=== PATIENT | male | born 1940 | race Caucasian/White ===

== ENCOUNTER 2017-01-04 04:25 | Inpatient (IN) | payer MEDICARE ==
[2017-01-03 14:25] LABS: HEMOGLOBIN 15.7 g/dL (13.7-18.0)
[2017-01-03 14:37] LABS: ASPARTATE AMINO TRANSFERASE 24 U/L (15-37); BLOOD UREA NITROGEN 18 mg/dL (7-18)
[~2017-01-04] VITALS: Ht 185.4 cm; Wt 129.3 kg
[~2017-01-04 04:25] MED LIST: ACET325T14 PO; APIX5TAB PO; ASPI-650 PO; ATOR80TA75 PO; CIPR500T87 PO; FURO-93 PO; FURO40TA6 PO; HYDR12.53 PO; LANTANOPROST EACHEYE; METO-93 PO; METO25TA35 PO; METR500T4 PO; RIVA20TA PO; SPIR25TA3 PO; TIMO5DRO5 EACHEYE; TRAV5DRO EACHEYE
[2017-01-04 04:41] VITALS: BP_SYST 132; BP_SYST 145; BP_DIAS 71; BP_DIAS 87
[2017-01-04] MEDS ORDERED: DO NOT GIVE XX SCH (05:00)
[2017-01-04] MEDS ORDERED: DO NOT GIVE MC SCH (05:00)
[2017-01-04] MEDS ORDERED: CHLORHEXIDINE MOUTHWASH 15 ML UDC MM SCH (05:00)
[2017-01-04] MEDS ORDERED: ALBUMIN HUMAN 5% 500 ML IV ONE (05:00)
[2017-01-04] MEDS ORDERED: INSULIN ASPART 100 UNITS/ML, PEN SQ-INSULIN SCH (06:00)
[2017-01-04] MEDS ORDERED: MIDAZOLAM 10MG/2 ML ONE (06:39)
[2017-01-04] MEDS ORDERED: FENTANYL PF 1000 MCG/20ML ONE (06:39)
[2017-01-04] MEDS ORDERED: PROPOFOL 10 MG/ML, 20ML ONE (07:15)
[2017-01-04] MEDS ORDERED: ROCURONIUM 10 MG/ML ONE (07:15)
[2017-01-04] MEDS ORDERED: MANNITOL PMX 20% 500 ML IVPB PRN (07:30)
[2017-01-04] MEDS ORDERED: REGULAR INSULIN 62.5 UNITS in SODIUM CHLORIDE 0.9% 249.375 ML IV PRN (07:30)
[2017-01-04] MEDS ORDERED: VANCOMYCIN 1,800 MG in SODIUM CHLORIDE 0.9% 250 ML IV PRN (07:30)
[2017-01-04] MEDS ORDERED: CEFUROXIME 1.5 GM in SODIUM CHLORIDE 0.9% 50 ML IVPB PRN (07:30)
[2017-01-04] MEDS ORDERED: PHENYLEPHRINE 10 MG in SODIUM CHLORIDE 0.9% 249 ML IV PRN ×2 (07:30→11:02)
[2017-01-04] MEDS ORDERED: POTASSIUM CHLORIDE 80 MEQ, SODIUM BICARBONATE 8.4% 10 MEQ, MAGNESIUM SULFATE 0.5 GM, LI... IV PRN (07:30)
[2017-01-04] MEDS ORDERED: DEXMEDETOMIDINE 200 MCG in SODIUM CHLORIDE 0.9% 48 ML IV SCH (07:30)
[2017-01-04] MEDS ORDERED: EPINEPHRINE 2 MG in SODIUM CHLORIDE 0.9% 248 ML IV SCH (07:30)
[2017-01-04] MEDS: SODIUM CHLORIDE FLUSH 10ML SYR IVF SCH ×3 (09:00→21:49)
[2017-01-04] MEDS ORDERED: MUPIROCIN OINT 2%, 22GM TP SCH (09:00)
[2017-01-04] MEDS ORDERED: CLEVIDIPINE 50 ML IV PRN (11:02)
[2017-01-04] MEDS ORDERED: NITROGLYCERIN/D5W PMX 250 ML IV PRN (11:02)
[2017-01-04] MEDS ORDERED: SODIUM CHLORIDE 0.9% 1,000 ML IV PRN (11:02)
[2017-01-04] MEDS ORDERED: DOBUTAMINE 250 MG in SODIUM CHLORIDE 0.9% 230 ML IV PRN (11:02)
[2017-01-04] MEDS ORDERED: DEXTROSE 4 GM TAB.CHEW PO PRN (11:30)
[2017-01-04] MEDS ORDERED: MEPERIDINE/PF 50 MG/ML IVPush PRN (11:30)
[2017-01-04] MEDS ORDERED: DEXTROSE 50%, 50ML SYRINGE IVPush PRN (11:30)
[2017-01-04] MEDS ORDERED: PROCHLORPERAZINE 5 MG/ML, 2ML IVPush PRN (11:30)
[2017-01-04] MEDS: KSCALE TO 4.5 IV SCH ×2 (11:30→17:30)
[2017-01-04] MEDS ORDERED: MIDAZOLAM 1 MG/ML, 5ML IVPush PRN (11:30)
[2017-01-04] MEDS ORDERED: BISACODYL 5 MG EC TABLET PO PRN (11:30)
[2017-01-04] MEDS ORDERED: GLUCAGON 1 MG IM PRN (11:30)
[2017-01-04] MEDS ORDERED: ACETAMINOPHEN 650 MG SUPP PR PRN (11:30)
[2017-01-04] MEDS: REGULAR INSULIN 62.5 UNITS in SODIUM CHLORIDE 0.9% 249.375 ML IV PRN ×2 (11:30→19:52)
[2017-01-04] MEDS: EPINEPHRINE 2 MG in SODIUM CHLORIDE 0.9% 248 ML IV PRN ×4 (11:30→23:58)
[2017-01-04] MEDS ORDERED: CALCIUM CHLORIDE 10%, 10ML SYR ONE (11:31)
[2017-01-04] MEDS ORDERED: AMINOCAPROIC ACID 250 MG/ML, 20ML ONE ×2 (11:31→11:35)
[2017-01-04] MEDS ORDERED: PROTAMINE SULFATE 10 MG/ML, 25ML ONE ×2 (11:31→11:35)
[2017-01-04] MEDS ORDERED: SODIUM BICARB 8.4%, 50ML SYRINGE ONE ×2 (11:31→11:37)
[2017-01-04] MEDS ORDERED: ALBUMIN HUMAN 25% 50 ML ONE (11:31)
[2017-01-04] MEDS ORDERED: HEPARIN 1,000 UNITS/ML, 30ML ONE ×5 (11:32→11:34)
[2017-01-04] MEDS ORDERED: LIDOCAINE 2% 100MG/5ML SYRINGE ONE (11:32)
[2017-01-04] MEDS ORDERED: SODIUM BICARBONATE 1 MEQ/ML, 50ML VIAL ONE (11:32)
[2017-01-04] MEDS ORDERED: methylPREDNISolone SOD SUCC 125 MG/2 ML ONE (11:33)
[2017-01-04] MEDS ORDERED: MILRINONE 1 MG/ML, 10ML IV ONE (11:33)
[2017-01-04 11:50] LABS: ABG COLLECTION SITE ARTERIAL LINE
[2017-01-04 12:00] LABS: HEMOGLOBIN 11.9 g/dL (13.7-18.0)
[2017-01-04] MEDS: SODIUM BICARB 8.4%, 50ML SYRINGE IV PRN ×4 (12:15→16:06)
[2017-01-04] MEDS: MAGNESIUM SULFATE 1 GM in SODIUM CHLORIDE 0.9% 50 ML IVPB SCH (12:17)
[2017-01-04] MEDS ORDERED: MORPHINE SULFATE 4 MG/ML, 1ML ONE (12:51)
[2017-01-04] MEDS: morphine SULFATE 10 MG/ML, 1ML IVPush PRN ×3 (13:00→13:53)
[2017-01-04] MEDS ORDERED: POTASSIUM CHLORIDE PMX 100 ML IV ONE ×2 (13:00→18:30)
[2017-01-04] MEDS: DEXMEDETOMIDINE 200 MCG in SODIUM CHLORIDE 0.9% 48 ML IV PRN ×3 (13:18→17:10)
[2017-01-04 17:12] LABS: HEMOGLOBIN 12.8 g/dL (13.7-18.0)
[2017-01-04] MEDS: CEFUROXIME 1.5 GM in SODIUM CHLORIDE 0.9% 50 ML IVPB SCH (18:11)
[2017-01-04] MEDS: VANCOMYCIN 1,700 MG in SODIUM CHLORIDE 0.9% 250 ML IVPB SCH (19:52)
[2017-01-04] MEDS: LACTATED RINGERS 500 ML IV PRN (20:27)
[2017-01-04] MEDS: MUPIROCIN OINT 2%, 22GM NAS SCH (21:49)
[2017-01-04] MEDS: DOCUSATE 100 MG CAPSULE PO SCH (21:49)
[2017-01-04] MEDS: OXYcodone IR 5MG TABLET PO PRN ×2 (21:49→22:52)
[2017-01-04] MEDS: ONDANSETRON 2MG/ML, 2ML IVPush PRN (23:54)
[2017-01-05 00:11] LABS: HEMOGLOBIN 12.3 g/dL (13.7-18.0)
[2017-01-05] MEDS: KSCALE TO 4.5 IV SCH ×3 (00:34→11:30)
[2017-01-05] MEDS: HYDROcodone/APAP 10/325 MG TABLET PO PRN ×3 (00:48→15:02)
[2017-01-05 04:00] VITALS: BP 94/46
[2017-01-05] MEDS: OXYcodone IR 5MG TABLET PO PRN ×3 (04:18→22:08)
[2017-01-05 04:27] LABS: ABG COLLECTION SITE ARTERIAL LINE
[2017-01-05 04:35] LABS: HEMOGLOBIN 11.8 g/dL (13.7-18.0)
[2017-01-05 04:37] LABS: BLOOD UREA NITROGEN 32 mg/dL (7-18)
[2017-01-05] MEDS: CEFUROXIME 1.5 GM in SODIUM CHLORIDE 0.9% 50 ML IVPB SCH (06:40)
[2017-01-05] MEDS: INSULIN ASPART 100 UNITS/ML, PEN SQ-INSULIN PRN ×3 (07:37→22:08)
[2017-01-05] MEDS: ONDANSETRON 2MG/ML, 2ML IVPush PRN (07:49)
[2017-01-05] MEDS: VANCOMYCIN 1,700 MG in SODIUM CHLORIDE 0.9% 250 ML IVPB SCH (08:03)
[2017-01-05] MEDS ORDERED: CALCIUM CHLORIDE 13.6 MEQ in SODIUM CHLORIDE 0.9% 100 ML IV ONE (08:30)
[2017-01-05 09:00] LABS: ABG COLLECTION SITE RIGHT RADIAL; COLLATERAL CIRCULATION TESTING NORMAL
[2017-01-05] MEDS: LACTATED RINGERS 500 ML IV PRN ×3 (09:00→15:38)
[2017-01-05] MEDS: PANTOPRAZOLE 40 MG IV IVPush SCH (10:29)
[2017-01-05] MEDS: ASPIRIN 81 MG TABLET EC PO SCH (10:29)
[2017-01-05] MEDS: DOCUSATE 100 MG CAPSULE PO SCH ×2 (10:29→22:08)
[2017-01-05] MEDS: MUPIROCIN OINT 2%, 22GM NAS SCH ×2 (10:29→22:08)
[2017-01-05] MEDS: SODIUM CHLORIDE FLUSH 10ML SYR IVF SCH ×4 (10:29→22:09)
[2017-01-05] MEDS: MAGNESIUM SULFATE 1 GM in SODIUM CHLORIDE 0.9% 50 ML IVPB SCH (12:02)
[2017-01-05] MEDS ORDERED: FUROSEMIDE 20 MG/2 ML ONE (12:42)
[2017-01-05] MEDS ORDERED: FUROSEMIDE 20 MG/2 ML IV ONE (13:00)
[2017-01-05] MEDS: CHLORHEXIDINE MOUTHWASH 15 ML UDC MM SCH ×2 (15:03→22:08)
[2017-01-05] MEDS ORDERED: FUROSEMIDE 40 MG/4 ML IV ONE (20:00)
[2017-01-05 20:20] LABS: ABG COLLECTION SITE RIGHT RADIAL; COLLATERAL CIRCULATION TESTING NORMAL
[2017-01-05] MEDS ORDERED: MORPHINE SULFATE 4 MG/ML, 1ML ONE (23:15)
[2017-01-05] MEDS: morphine SULFATE 10 MG/ML, 1ML IVPush PRN (23:16)
[2017-01-06] MEDS ORDERED: MORPHINE SULFATE 4 MG/ML, 1ML ONE (01:07)
[2017-01-06] MEDS: morphine SULFATE 10 MG/ML, 1ML IVPush PRN (01:09)
[2017-01-06] MEDS: OXYcodone IR 5MG TABLET PO PRN (04:18)
[2017-01-06 04:25] LABS: HEMOGLOBIN 12.1 g/dL (13.7-18.0)
[2017-01-06 04:47] LABS: ABG COLLECTION SITE RIGHT RADIAL; COLLATERAL CIRCULATION TESTING NORMAL
[2017-01-06 05:00] VITALS: BP 109/61
[2017-01-06 06:21] LABS: BLOOD UREA NITROGEN 56 mg/dL (7-18)
[2017-01-06] MEDS: PANTOPRAZOLE 40 MG IV IVPush SCH (08:35)
[2017-01-06] MEDS: SODIUM CHLORIDE FLUSH 10ML SYR IVF SCH ×2 (08:39→20:46)
[2017-01-06] MEDS: ASPIRIN 81 MG TABLET EC PO SCH (09:14)
[2017-01-06] MEDS: MUPIROCIN OINT 2%, 22GM NAS SCH ×2 (09:14→20:46)
[2017-01-06] MEDS: DOCUSATE 100 MG CAPSULE PO SCH ×2 (09:15→20:46)
[2017-01-06] MEDS ORDERED: ALBUMIN HUMAN 25% 50 ML IV PRN (11:00)
[2017-01-06] MEDS: CHLORHEXIDINE MOUTHWASH 15 ML UDC MM SCH ×2 (11:30→23:12)
[2017-01-06] MEDS: MAGNESIUM SULFATE 1 GM in SODIUM CHLORIDE 0.9% 50 ML IVPB SCH (12:00)
[2017-01-06] MEDS ORDERED: WARFARIN 5 MG TABLET PO-COUM SCH (18:00)
[2017-01-07 04:17] LABS: ABG COLLECTION SITE RIGHT BRACHIAL
[2017-01-07] MEDS ORDERED: HALOPERIDOL 5 MG/ML ONE (04:37)
[2017-01-07] MEDS: HALOPERIDOL 5 MG/ML IM PRN ×4 (04:42→23:24)
[2017-01-07 05:00] VITALS: BP 118/64
[2017-01-07] MEDS ORDERED: MEPERIDINE/PF 25MG/0.5ML IVPush PRN (05:00)
[2017-01-07 06:09] LABS: BLOOD UREA NITROGEN 62 mg/dL (7-18)
[2017-01-07 08:28] LABS: HEMOGLOBIN 10.8 g/dL (13.7-18.0)
[2017-01-07] MEDS: DOCUSATE 100 MG CAPSULE PO SCH (09:00)
[2017-01-07] MEDS: ASPIRIN 81 MG TABLET EC PO SCH (09:00)
[2017-01-07] MEDS: ALBUMIN HUMAN 25% 50 ML IV PRN ×3 (10:31→12:31)
[2017-01-07] MEDS ORDERED: ALBUMIN HUMAN 25% 50 ML IV PRN (11:00)
[2017-01-07] MEDS: ACETAMINOPHEN 325 MG TABLET PO PRN (12:27)
[2017-01-07] MEDS: PANTOPRAZOLE 40 MG IV IVPush SCH (15:02)
[2017-01-07] MEDS: MUPIROCIN OINT 2%, 22GM NAS SCH ×2 (15:02→20:36)
[2017-01-07] MEDS: SODIUM CHLORIDE FLUSH 10ML SYR IVF SCH ×2 (15:03→20:36)
[2017-01-07] MEDS ORDERED: WARFARIN 5 MG TABLET PO-COUM SCH (18:00)
[2017-01-07] MEDS: OXYcodone 5 MG/5 ML ORAL.SOL UDC PO PRN (19:46)
[2017-01-07] MEDS: DOCUSATE 50 MG/5 ML, 10ML UDC PO SCH (20:38)
[2017-01-08] MEDS: OXYcodone 5 MG/5 ML ORAL.SOL UDC PO PRN ×2 (00:12→09:02)
[2017-01-08 03:16] LABS: BLOOD UREA NITROGEN 58 mg/dL (7-18)
[2017-01-08 04:00] VITALS: BP 108/48
[2017-01-08] MEDS: ALBUMIN HUMAN 25% 100 ML IV PRN (08:25)
[2017-01-08] MEDS: ALBUMIN HUMAN 25% 50 ML IV PRN ×2 (09:53→11:46)
[2017-01-08] MEDS: QUETIAPINE 25MG TABLET PO SCH ×2 (11:49→20:48)
[2017-01-08] MEDS: PANTOPRAZOLE 40 MG IV IVPush SCH (11:57)
[2017-01-08] MEDS: MUPIROCIN OINT 2%, 22GM NAS SCH ×2 (11:57→20:47)
[2017-01-08] MEDS: DOCUSATE 50 MG/5 ML, 10ML UDC PO SCH ×2 (11:57→20:47)
[2017-01-08] MEDS: ASPIRIN 81 MG TABLET EC PO SCH (11:58)
[2017-01-08] MEDS: SODIUM CHLORIDE FLUSH 10ML SYR IVF SCH ×2 (11:58→20:47)
[2017-01-08] MEDS ORDERED: MIDAZOLAM 1 MG/ML, 5ML ONE (12:00)
[2017-01-08] MEDS ORDERED: PROPOFOL 10 MG/ML, 100ML IV ONE (12:00)
[2017-01-08] MEDS ORDERED: ETOMIDATE 40 MG/20 ML ONE (12:00)
[2017-01-08] MEDS ORDERED: WARFARIN 2.5 MG TABLET PO-COUM ONE (18:00)
[2017-01-08] MEDS ORDERED: LIDOCAINE-MPF 1%, 2ML ENDO PRN (19:30)
[2017-01-08] MEDS ORDERED: LACTULOSE 20 GM/30 ML UDC NG PRN (19:30)
[2017-01-08] MEDS ORDERED: FENTANYL PF 100 MCG/2ML IVPush PRN (19:30)
[2017-01-08] MEDS ORDERED: PHARMACY MAY ADJ FOR RENAL FX MC SCH (19:30)
[2017-01-08] MEDS ORDERED: MIDAZOLAM 1 MG/ML, 2ML IVPush PRN (19:30)
[2017-01-08 20:37] LABS: ABG COLLECTION SITE RIGHT RADIAL; COLLATERAL CIRCULATION TESTING NORMAL
[2017-01-08] MEDS ORDERED: EPINEPHRINE 2 MG in SODIUM CHLORIDE 0.9% 249 ML IV PRN (21:00)
[2017-01-08] MEDS: EPINEPHRINE 2 MG in SODIUM CHLORIDE 0.9% 248 ML IV PRN ×2 (21:04→23:40)
[2017-01-09] MEDS: OCULAR LUBRICANT OPHTH OINT 3.5 GM EACHEYE PRN ×2 (01:35→08:50)
[2017-01-09] MEDS: EPINEPHRINE 8 MG in SODIUM CHLORIDE 0.9% 242 ML IV PRN ×2 (02:13→15:00)
[2017-01-09] MEDS: PROPOFOL 100 ML IV PRN ×5 (02:25→21:11)
[2017-01-09] MEDS ORDERED: VASOPRESSIN 100 UNIT in SODIUM CHLORIDE 0.9% 495 ML IV PRN (03:00)
[2017-01-09 04:00] VITALS: BP 130/63
[2017-01-09 04:40] LABS: ABG COLLECTION SITE NOT DOCUMENTED
[2017-01-09 04:42] LABS: HEMOGLOBIN 9.5 g/dL (13.7-18.0)
[2017-01-09 04:55] LABS: BLOOD UREA NITROGEN 64 mg/dL (7-18)
[2017-01-09] MEDS: PANTOPRAZOLE 40 MG IV IVPush SCH (08:49)
[2017-01-09] MEDS: DOCUSATE 50 MG/5 ML, 10ML UDC PO SCH ×2 (08:49→21:26)
[2017-01-09] MEDS: MUPIROCIN OINT 2%, 22GM NAS SCH (08:49)
[2017-01-09] MEDS: SODIUM CHLORIDE FLUSH 10ML SYR IVF SCH ×2 (08:50→21:27)
[2017-01-09] MEDS: ASPIRIN 81 MG TABLET EC PO SCH (08:50)
[2017-01-09] MEDS: QUETIAPINE 25MG TABLET PO SCH ×2 (08:50→21:27)
[2017-01-09] MEDS ORDERED: VECURONIUM 10 MG IV PRN (09:00)
[2017-01-09] MEDS: METOCLOPRAMIDE 5 MG/ML, 2ML IVPush SCH ×2 (10:49→21:26)
[2017-01-09] MEDS ORDERED: WARFARIN 5 MG TABLET PO-COUM ONE (18:00)
[2017-01-09] MEDS: BISACODYL 10 MG SUPP PR PRN (22:14)
[2017-01-10] MEDS: PROPOFOL 100 ML IV PRN ×3 (00:29→19:59)
[2017-01-10] MEDS: EPINEPHRINE 8 MG in SODIUM CHLORIDE 0.9% 242 ML IV PRN (03:43)
[2017-01-10 04:00] VITALS: BP 110/56
[2017-01-10 05:03] LABS: ABG COLLECTION SITE LEFT RADIAL; COLLATERAL CIRCULATION TESTING NORMAL
[2017-01-10 05:14] LABS: HEMOGLOBIN 9.4 g/dL (13.7-18.0)
[2017-01-10 05:28] LABS: BLOOD UREA NITROGEN 57 mg/dL (7-18)
[2017-01-10] MEDS: INSULIN ASPART 100 UNITS/ML, PEN SQ-INSULIN SCH ×3 (08:42→20:42)
[2017-01-10] MEDS: METOCLOPRAMIDE 5 MG/ML, 2ML IVPush SCH ×2 (08:49→20:44)
[2017-01-10] MEDS: HYDROcodone/APAP 10/325 MG TABLET PO PRN ×2 (08:50→13:29)
[2017-01-10] MEDS: DOCUSATE 50 MG/5 ML, 10ML UDC PO SCH ×2 (08:50→20:44)
[2017-01-10] MEDS: QUETIAPINE 25MG TABLET PO SCH ×2 (08:50→20:44)
[2017-01-10] MEDS: PANTOPRAZOLE 40 MG IV IVPush SCH (08:50)
[2017-01-10] MEDS: SODIUM CHLORIDE FLUSH 10ML SYR IVF SCH ×2 (08:50→19:59)
[2017-01-10] MEDS: ASPIRIN 81 MG TABLET EC PO SCH (09:00)
[2017-01-10] MEDS: ALBUMIN HUMAN 25% 100 ML IV PRN (09:35)
[2017-01-10] MEDS: ASPIRIN 81 MG TABLET CHEW PO SCH (10:28)
[2017-01-10] MEDS ORDERED: FILTER 0.22 MICRON IV SCH (10:30)
[2017-01-10] MEDS ORDERED: AMIODARONE 150 MG in DEXTROSE 5% 100 ML IV ONE (10:30)
[2017-01-10] MEDS ORDERED: AMIODARONE 900 MG in DEXTROSE 5% 482 ML IV PRN (10:30)
[2017-01-10] MEDS ORDERED: WARFARIN 7.5 MG TABLET PO-COUM ONE (18:00)
[2017-01-10] MEDS: OCULAR LUBRICANT OPHTH OINT 3.5 GM EACHEYE PRN (20:35)
[2017-01-11] MEDS: INSULIN ASPART 100 UNITS/ML, PEN SQ-INSULIN SCH ×4 (03:00→21:26)
[2017-01-11 03:48] LABS: HEMOGLOBIN 9.8 g/dL (13.7-18.0)
[2017-01-11 03:49] LABS: BLOOD UREA NITROGEN 60 mg/dL (7-18)
[2017-01-11 04:22] VITALS: BP 100/56
[2017-01-11 04:47] LABS: ABG COLLECTION SITE RIGHT RADIAL
[2017-01-11 04:48] LABS: COLLATERAL CIRCULATION TESTING NORMAL; FIO2 40 %
[2017-01-11] MEDS: ALBUMIN HUMAN 25% 50 ML IV PRN (08:58)
[2017-01-11] MEDS: HYDROcodone/APAP 10/325 MG TABLET PO PRN ×2 (09:38→14:01)
[2017-01-11] MEDS: ASPIRIN 81 MG TABLET CHEW PO SCH (09:38)
[2017-01-11] MEDS: PANTOPRAZOLE 40 MG IV IVPush SCH (09:38)
[2017-01-11] MEDS: DOCUSATE 50 MG/5 ML, 10ML UDC PO SCH ×2 (09:38→21:24)
[2017-01-11] MEDS: METOCLOPRAMIDE 5 MG/ML, 2ML IVPush SCH ×2 (09:38→21:24)
[2017-01-11] MEDS: QUETIAPINE 25MG TABLET PO SCH ×2 (09:38→21:24)
[2017-01-11] MEDS: SODIUM CHLORIDE FLUSH 10ML SYR IVF SCH ×2 (09:38→21:25)
[2017-01-11] MEDS: ARTIFICIAL TEARS OPHTH SOLN 15ML EACHEYE PRN (09:39)
[2017-01-11] MEDS ORDERED: WARFARIN 5 MG TABLET PO-COUM ONE (18:00)
[2017-01-11] MEDS: OXYcodone 5 MG/5 ML ORAL.SOL UDC PO PRN (18:13)
[2017-01-11] MEDS: CEFTRIAXONE PMX 1GM/50ML 50 ML IV SCH (19:46)
[2017-01-11] MEDS: ALBUTEROL SULFATE 2.5 MG/3 ML NPPB SCH (20:00)
[2017-01-11] MEDS: BISACODYL 10 MG SUPP PR PRN (22:21)
[2017-01-11] MEDS: LATANOPROST OPHTH 0.005%, 2.5ML EACHEYE SCH (22:22)
[2017-01-12] MEDS: ALBUTEROL SULFATE 2.5 MG/3 ML NPPB SCH (02:07)
[2017-01-12 04:03] LABS: HEMOGLOBIN 9.7 g/dL (13.7-18.0)
[2017-01-12 04:13] LABS: BLOOD UREA NITROGEN 62 mg/dL (7-18)
[2017-01-12 04:17] LABS: DIFF TOTAL CELLS COUNTED 100 CELL DIFF
[2017-01-12 04:19] LABS: ANISOCYTOSIS 1+; VERIFY COUNTS? YES
[2017-01-12 04:30] VITALS: BP 102/46
[2017-01-12] MEDS: INSULIN ASPART 100 UNITS/ML, PEN SQ-INSULIN SCH ×4 (04:38→21:00)
[2017-01-12 05:42] LABS: ABG COLLECTION SITE RIGHT RADIAL; COLLATERAL CIRCULATION TESTING NORMAL
[2017-01-12] MEDS: ASPIRIN 81 MG TABLET CHEW PO SCH (09:50)
[2017-01-12] MEDS: METOCLOPRAMIDE 5 MG/ML, 2ML IVPush SCH ×2 (09:50→20:50)
[2017-01-12] MEDS: PANTOPRAZOLE 40 MG IV IVPush SCH (09:50)
[2017-01-12] MEDS: QUETIAPINE 25MG TABLET PO SCH ×2 (09:50→20:51)
[2017-01-12] MEDS: SODIUM CHLORIDE FLUSH 10ML SYR IVF SCH ×2 (09:51→20:50)
[2017-01-12] MEDS: DOCUSATE 50 MG/5 ML, 10ML UDC PO SCH ×2 (09:51→20:51)
[2017-01-12] MEDS: TIMOLOL OPHTH 0.5%, 5ML EACHEYE SCH ×2 (11:00→20:50)
[2017-01-12] MEDS: ALBUMIN HUMAN 25% 100 ML IV PRN (14:11)
[2017-01-12] MEDS: CEFTRIAXONE PMX 1GM/50ML 50 ML IV SCH (17:53)
[2017-01-12] MEDS: LATANOPROST OPHTH 0.005%, 2.5ML EACHEYE SCH (20:51)
[2017-01-13] MEDS: INSULIN ASPART 100 UNITS/ML, PEN SQ-INSULIN SCH ×4 (03:00→20:34)
[2017-01-13 04:00] VITALS: BP 114/64
[2017-01-13 04:36] LABS: ABG COLLECTION SITE LEFT RADIAL; COLLATERAL CIRCULATION TESTING NORMAL
[2017-01-13 05:04] LABS: HEMOGLOBIN 9.8 g/dL (13.7-18.0)
[2017-01-13 05:17] LABS: BLOOD UREA NITROGEN 62 mg/dL (7-18)
[2017-01-13] MEDS ORDERED: ALBUTEROL SULFATE 2.5 MG/3 ML ONE (08:54)
[2017-01-13] MEDS: ALBUTEROL SULFATE 2.5 MG/3 ML IPPB SCH ×4 (08:55→19:30)
[2017-01-13] MEDS: SODIUM CHLORIDE FLUSH 10ML SYR IVF SCH ×2 (09:00→20:35)
[2017-01-13] MEDS: QUETIAPINE 25MG TABLET PO SCH (09:00)
[2017-01-13] MEDS: ALBUMIN HUMAN 25% 50 ML IV PRN (10:43)
[2017-01-13] MEDS: ASPIRIN 81 MG TABLET CHEW PO SCH (12:24)
[2017-01-13] MEDS: TIMOLOL OPHTH 0.5%, 5ML EACHEYE SCH (12:25)
[2017-01-13] MEDS: PANTOPRAZOLE 40 MG IV IVPush SCH (12:25)
[2017-01-13] MEDS: DOCUSATE 50 MG/5 ML, 10ML UDC PO SCH ×2 (12:26→20:34)
[2017-01-13] MEDS: METOCLOPRAMIDE 5 MG/ML, 2ML IVPush SCH ×2 (12:26→20:34)
[2017-01-13] MEDS: ONDANSETRON 2MG/ML, 2ML IVPush PRN (13:16)
[2017-01-13] MEDS: CEFTRIAXONE PMX 1GM/50ML 50 ML IV SCH (18:00)
[2017-01-13] MEDS: LATANOPROST OPHTH 0.005%, 2.5ML EACHEYE SCH (20:35)
[2017-01-14] MEDS: INSULIN ASPART 100 UNITS/ML, PEN SQ-INSULIN SCH ×4 (02:05→21:27)
[2017-01-14 04:00] VITALS: BP 108/47
[2017-01-14 04:30] LABS: HEMOGLOBIN 9.7 g/dL (13.7-18.0)
[2017-01-14 04:43] LABS: BLOOD UREA NITROGEN 74 mg/dL (7-18)
[2017-01-14 04:47] LABS: ABG COLLECTION SITE ARTERIAL LINE
[2017-01-14] MEDS: ALBUTEROL SULFATE 2.5 MG/3 ML IPPB SCH ×5 (06:00→23:26)
[2017-01-14] MEDS: SODIUM CHLORIDE FLUSH 10ML SYR IVF SCH ×2 (09:00→20:20)
[2017-01-14] MEDS: PANTOPRAZOLE 40 MG IV IVPush SCH (09:00)
[2017-01-14] MEDS ORDERED: BISACODYL 10 MG SUPP PR PRN (09:00)
[2017-01-14] MEDS: DOCUSATE 50 MG/5 ML, 10ML UDC PO SCH (10:39)
[2017-01-14] MEDS: LACTULOSE 20 GM/30 ML UDC NG PRN (10:39)
[2017-01-14] MEDS: TIMOLOL OPHTH 0.5%, 5ML EACHEYE SCH (10:40)
[2017-01-14] MEDS: SENNOSIDES 8.8 MG/5 ML ORAL SOL NG SCH (10:40)
[2017-01-14] MEDS: ASPIRIN 81 MG TABLET CHEW PO SCH (10:40)
[2017-01-14] MEDS: METOCLOPRAMIDE 5 MG/ML, 2ML IVPush SCH ×2 (10:41→20:20)
[2017-01-14] MEDS: NYSTATIN 500,000 UNITS/5 ML UDC PO SCH ×2 (17:18→20:20)
[2017-01-14] MEDS: CEFTRIAXONE PMX 1GM/50ML 50 ML IV SCH (17:39)
[2017-01-14] MEDS ORDERED: WARFARIN 2.5 MG TABLET PO-COUM ONE (18:00)
[2017-01-14] MEDS: LATANOPROST OPHTH 0.005%, 2.5ML EACHEYE SCH (20:20)
[2017-01-15] MEDS: INSULIN ASPART 100 UNITS/ML, PEN SQ-INSULIN SCH (03:40)
[2017-01-15 04:00] VITALS: BP 105/42
[2017-01-15 05:08] LABS: HEMOGLOBIN 10.1 g/dL (13.7-18.0)
[2017-01-15] MEDS: NYSTATIN 500,000 UNITS/5 ML UDC PO SCH ×4 (05:26→20:53)
[2017-01-15 06:00] LABS: BLOOD UREA NITROGEN 109 mg/dL (7-18)
[2017-01-15] MEDS ORDERED: MAGNESIUM HYDROXIDE 8%, 30ML UDC PO PRN (09:30)
[2017-01-15] MEDS: TIMOLOL OPHTH 0.5%, 5ML EACHEYE SCH (09:54)
[2017-01-15] MEDS: ASPIRIN 81 MG TABLET CHEW PO SCH (09:55)
[2017-01-15] MEDS: PANTOPRAZOLE 40 MG IV IVPush SCH (09:55)
[2017-01-15] MEDS: DOCUSATE 50 MG/5 ML, 10ML UDC PO SCH (09:55)
[2017-01-15] MEDS: SODIUM CHLORIDE FLUSH 10ML SYR IVF SCH ×3 (09:55→20:53)
[2017-01-15] MEDS: TAMSULOSIN 0.4 MG CAP.ER.24H PO SCH (09:55)
[2017-01-15] MEDS: METOCLOPRAMIDE 5 MG/ML, 2ML IVPush SCH ×2 (09:55→20:53)
[2017-01-15] MEDS ORDERED: CALCIUM ACETATE 667 MG CAPSULE PO SCH (10:30)
[2017-01-15] MEDS ORDERED: SEVELAMER 2.4 GM POWD.PACK NG SCH (11:00)
[2017-01-15] MEDS: SEVELAMER 2.4 GM POWD.PACK NG SCH (14:09)
[2017-01-15] MEDS ORDERED: HEPARIN wt. based STROKE protocol MC PRN (15:30)
[2017-01-15] MEDS: ALBUMIN HUMAN 25% 100 ML IV PRN (17:02)
[2017-01-15] MEDS: HEPARIN 25,000 UNITS/500ML PMX 500 ML IV PRN (17:16)
[2017-01-15] MEDS ORDERED: WARFARIN 2 MG TABLET PO-COUM ONE (18:00)
[2017-01-15 20:00] VITALS: BP 88/27
[2017-01-15] MEDS: LATANOPROST OPHTH 0.005%, 2.5ML EACHEYE SCH (20:52)
[2017-01-15] MEDS: CEFTRIAXONE PMX 1GM/50ML 50 ML IV SCH (20:52)
[2017-01-15] MEDS: SENNOSIDES 8.8 MG/5 ML ORAL SOL NG SCH (21:00)
[2017-01-16 02:00] VITALS: BP 109/52
[2017-01-16] MEDS: NYSTATIN 500,000 UNITS/5 ML UDC PO SCH ×4 (05:24→22:01)
[2017-01-16 05:46] LABS: HEMOGLOBIN 9.3 g/dL (13.7-18.0)
[2017-01-16 06:02] LABS: BLOOD UREA NITROGEN 113 mg/dL (7-18)
[2017-01-16 07:45] VITALS: BP 137/57
[2017-01-16] MEDS: ASPIRIN 81 MG TABLET CHEW PO SCH (10:26)
[2017-01-16] MEDS: SODIUM CHLORIDE FLUSH 10ML SYR IVF SCH ×4 (10:26→22:00)
[2017-01-16] MEDS: SEVELAMER 2.4 GM POWD.PACK NG SCH (10:26)
[2017-01-16] MEDS: METOCLOPRAMIDE 5 MG/ML, 2ML IVPush SCH ×2 (10:26→22:00)
[2017-01-16] MEDS: PANTOPRAZOLE 40 MG IV IVPush SCH (10:26)
[2017-01-16] MEDS: TAMSULOSIN 0.4 MG CAP.ER.24H PO SCH (10:26)
[2017-01-16] MEDS: TIMOLOL OPHTH 0.5%, 5ML EACHEYE SCH (10:26)
[2017-01-16] MEDS: DOCUSATE 50 MG/5 ML, 10ML UDC PO SCH (10:26)
[2017-01-16] MEDS: ALBUMIN HUMAN 25% 50 ML IV PRN (12:37)
[2017-01-16] MEDS: HEPARIN 25,000 UNITS/500ML PMX 500 ML IV PRN (13:55)
[2017-01-16 14:14] VITALS: BP 121/69
[2017-01-16 20:00] VITALS: BP 112/68
[2017-01-16] MEDS: LATANOPROST OPHTH 0.005%, 2.5ML EACHEYE SCH (21:00)
[2017-01-16] MEDS: CEFTRIAXONE PMX 1GM/50ML 50 ML IV SCH (21:59)
[2017-01-17 02:00] VITALS: BP 104/64
[2017-01-17] MEDS: HEPARIN 25,000 UNITS/500ML PMX 500 ML IV PRN ×2 (03:00→17:55)
[2017-01-17] MEDS: NYSTATIN 500,000 UNITS/5 ML UDC PO SCH ×4 (04:26→21:21)
[2017-01-17 05:22] LABS: HEMOGLOBIN 9.2 g/dL (13.7-18.0)
[2017-01-17 05:25] LABS: BLOOD UREA NITROGEN 93 mg/dL (7-18)
[2017-01-17 09:03] VITALS: BP 122/64
[2017-01-17] MEDS: DOCUSATE 50 MG/5 ML, 10ML UDC PO SCH (10:32)
[2017-01-17] MEDS: PANTOPRAZOLE 40 MG IV IVPush SCH (10:33)
[2017-01-17] MEDS: METOCLOPRAMIDE 5 MG/ML, 2ML IVPush SCH ×2 (10:33→21:20)
[2017-01-17] MEDS: TAMSULOSIN 0.4 MG CAP.ER.24H PO SCH (10:33)
[2017-01-17] MEDS: ASPIRIN 81 MG TABLET CHEW PO SCH (10:33)
[2017-01-17] MEDS: SODIUM CHLORIDE FLUSH 10ML SYR IVF SCH ×4 (10:33→21:21)
[2017-01-17] MEDS: SEVELAMER 2.4 GM POWD.PACK NG SCH (10:33)
[2017-01-17] MEDS: TIMOLOL OPHTH 0.5%, 5ML EACHEYE SCH (10:34)
[2017-01-17] MEDS: ALBUMIN HUMAN 25% 100 ML IV PRN (10:56)
[2017-01-17] MEDS: ACETAMINOPHEN 325 MG TABLET PO PRN (12:02)
[2017-01-17] MEDS: ARANESP 60 MCG/ML **ESRD SQ SCH (12:03)
[2017-01-17] MEDS: ALBUMIN HUMAN 25% 50 ML IV PRN ×2 (12:26→13:36)
[2017-01-17 14:00] VITALS: BP 100/54
[2017-01-17 19:28] VITALS: BP 117/68
[2017-01-17] MEDS: LATANOPROST OPHTH 0.005%, 2.5ML EACHEYE SCH (21:00)
[2017-01-17] MEDS: CEFTRIAXONE PMX 1GM/50ML 50 ML IV SCH (21:21)
[2017-01-18 01:58] VITALS: BP 108/67
[2017-01-18] MEDS: ACETAMINOPHEN 325 MG TABLET PO PRN ×2 (03:09→08:57)
[2017-01-18 04:32] LABS: HEMOGLOBIN 8.7 g/dL (13.7-18.0)
[2017-01-18 04:34] LABS: ANTI-Xa-UNFRACTIONATED HEP 0.22 IU/mL (0.30-0.70)
[2017-01-18 04:35] LABS: BLOOD UREA NITROGEN 82 mg/dL (7-18)
[2017-01-18] MEDS: NYSTATIN 500,000 UNITS/5 ML UDC PO SCH ×4 (06:25→21:00)
[2017-01-18] MEDS: HEPARIN 25,000 UNITS/500ML PMX 500 ML IV PRN ×2 (06:38→18:09)
[2017-01-18 07:33] VITALS: BP 116/76
[2017-01-18] MEDS: METOCLOPRAMIDE 5 MG/ML, 2ML IVPush SCH ×2 (08:28→22:44)
[2017-01-18] MEDS: SODIUM CHLORIDE FLUSH 10ML SYR IVF SCH ×4 (08:28→22:43)
[2017-01-18] MEDS: DOCUSATE 50 MG/5 ML, 10ML UDC PO SCH (08:28)
[2017-01-18] MEDS: PANTOPRAZOLE 40 MG IV IVPush SCH (08:28)
[2017-01-18] MEDS: SEVELAMER 2.4 GM POWD.PACK NG SCH (08:28)
[2017-01-18] MEDS: TIMOLOL OPHTH 0.5%, 5ML EACHEYE SCH (08:29)
[2017-01-18] MEDS: TAMSULOSIN 0.4 MG CAP.ER.24H PO SCH (08:29)
[2017-01-18] MEDS: ASPIRIN 81 MG TABLET CHEW PO SCH (08:29)
[2017-01-18] MEDS: SERTRALINE 50MG TABLET PO SCH (11:31)
[2017-01-18] MEDS: LACTULOSE 20 GM/30 ML UDC NG PRN (12:14)
[2017-01-18 13:33] VITALS: BP 107/70
[2017-01-18 20:21] VITALS: BP 112/72
[2017-01-18] MEDS: LATANOPROST OPHTH 0.005%, 2.5ML EACHEYE SCH (21:00)
[2017-01-18] MEDS: CEFTRIAXONE PMX 1GM/50ML 50 ML IV SCH (22:44)
[2017-01-19] VITALS (9 sets, daily range): BP systolic 92–113; BP diastolic 62–77
[2017-01-19] MEDS: METOCLOPRAMIDE 5 MG/ML, 2ML IVPush SCH ×4 (05:26→21:14)
[2017-01-19] MEDS: NYSTATIN 500,000 UNITS/5 ML UDC PO SCH ×4 (05:27→21:00)
[2017-01-19 06:04] LABS: HEMOGLOBIN 9.7 g/dL (13.7-18.0)
[2017-01-19 06:18] LABS: BLOOD UREA NITROGEN 108 mg/dL (7-18)
[2017-01-19 06:21] LABS: ANTI-Xa-UNFRACTIONATED HEP 0.84 IU/mL (0.30-0.70)
[2017-01-19] MEDS: DOCUSATE 50 MG/5 ML, 10ML UDC PO SCH (09:00)
[2017-01-19] MEDS: ASPIRIN 81 MG TABLET CHEW PO SCH (09:00)
[2017-01-19] MEDS: SEVELAMER 2.4 GM POWD.PACK NG SCH (09:00)
[2017-01-19] MEDS: TAMSULOSIN 0.4 MG CAP.ER.24H PO SCH (09:00)
[2017-01-19] MEDS: SERTRALINE 50MG TABLET PO SCH (09:00)
[2017-01-19] MEDS: ALBUMIN HUMAN 25% 100 ML IV PRN (09:25)
[2017-01-19] MEDS: TIMOLOL OPHTH 0.5%, 5ML EACHEYE SCH (10:05)
[2017-01-19] MEDS: OCULAR LUBRICANT OPHTH OINT 3.5 GM EACHEYE PRN ×2 (10:05→16:15)
[2017-01-19] MEDS: PANTOPRAZOLE 40 MG IV IVPush SCH (10:06)
[2017-01-19] MEDS: SODIUM CHLORIDE FLUSH 10ML SYR IVF SCH ×4 (10:06→21:14)
[2017-01-19] MEDS: METHYLNALTREXONE 12 MG/0.6 ML SQ SCH (12:15)
[2017-01-19] MEDS ORDERED: MIDAZOLAM 1 MG/ML, 5ML ONE (14:00)
[2017-01-19] MEDS ORDERED: FENTANYL PF 100 MCG/2ML ONE (14:01)
[2017-01-19] MEDS ORDERED: NALOXONE 1 MG/ML, 2ML ONE (14:01)
[2017-01-19] MEDS ORDERED: FLUMAZENIL 0.1 MG/1 ML, 5ML ONE (14:01)
[2017-01-19] MEDS ORDERED: CEFAZOLIN PMX 1GM/50ML 50 ML ONE (14:09)
[2017-01-19] MEDS ORDERED: LIDOCAINE 1%, 20ML ONE (14:31)
[2017-01-19] MEDS: RIVAROXABAN 10 MG TABLET PO SCH (15:02)
[2017-01-19] MEDS: HEPARIN 25,000 UNITS/500ML PMX 500 ML IV PRN (18:01)
[2017-01-19] MEDS: LATANOPROST OPHTH 0.005%, 2.5ML EACHEYE SCH (21:00)
[2017-01-19] MEDS: CEFTRIAXONE PMX 1GM/50ML 50 ML IV SCH (21:14)
[2017-01-20 01:53] VITALS: BP 101/51
[2017-01-20] MEDS: METOCLOPRAMIDE 5 MG/ML, 2ML IVPush SCH ×4 (03:06→22:17)
[2017-01-20 04:27] LABS: ABG COLLECTION SITE NOT DOCUMENTED
[2017-01-20 04:38] LABS: BLOOD UREA NITROGEN 78 mg/dL (7-18); HEMOGLOBIN 9.1 g/dL (13.7-18.0)
[2017-01-20] MEDS: NYSTATIN 500,000 UNITS/5 ML UDC PO SCH ×4 (06:00→22:17)
[2017-01-20 06:01] LABS: DIFF TOTAL CELLS COUNTED 100 CELL DIFF
[2017-01-20 06:04] LABS: ANISOCYTOSIS 1+; OVALOCYTES 1+; POIKILOCYTOSIS 1+; POLYCHROMASIA 1+
[2017-01-20 06:07] LABS: VERIFY COUNTS? YES
[2017-01-20] MEDS: NOREPINEPHRINE 4 MG in SODIUM CHLORIDE 0.9% 246 ML IV PRN ×2 (06:12→20:42)
[2017-01-20] MEDS: PIPERACILLIN/TAZO/PMX 2.25GM 50 ML IV SCH ×4 (06:17→20:43)
[2017-01-20] MEDS ORDERED: PROPOFOL 100 ML IV PRN ×2 (06:30→09:08)
[2017-01-20] MEDS: SODIUM CHLORIDE FLUSH 10ML SYR IVF SCH ×6 (07:32→20:48)
[2017-01-20] MEDS ORDERED: PROPOFOL 10 MG/ML, 50ML ONE (08:00)
[2017-01-20] MEDS ORDERED: SUCCINYLCHOLINE 20 MG/ML, 10ML ONE (08:00)
[2017-01-20] MEDS: TAMSULOSIN 0.4 MG CAP.ER.24H PO SCH (08:49)
[2017-01-20] MEDS: SERTRALINE 50MG TABLET PO SCH (08:49)
[2017-01-20] MEDS: ARTIFICIAL TEARS OPHTH SOLN 15ML EACHEYE PRN (08:49)
[2017-01-20] MEDS: DOCUSATE 50 MG/5 ML, 10ML UDC PO SCH (08:50)
[2017-01-20] MEDS: SEVELAMER 2.4 GM POWD.PACK NG SCH (08:50)
[2017-01-20] MEDS: ASPIRIN 81 MG TABLET CHEW PO SCH (08:50)
[2017-01-20] MEDS: PANTOPRAZOLE 40 MG IV IVPush SCH (09:00)
[2017-01-20] MEDS: TIMOLOL OPHTH 0.5%, 5ML EACHEYE SCH ×2 (09:00→22:16)
[2017-01-20] MEDS ORDERED: DEXTROSE 4 GM TAB.CHEW PO PRN (09:30)
[2017-01-20] MEDS ORDERED: GLUCAGON 1 MG IM PRN (09:30)
[2017-01-20] MEDS ORDERED: PHARMACY MAY ADJ FOR RENAL FX MC SCH (09:30)
[2017-01-20] MEDS ORDERED: LIDOCAINE-MPF 1%, 2ML ENDO PRN (09:30)
[2017-01-20] MEDS ORDERED: DEXTROSE 50%, 50ML SYRINGE IVPush PRN (09:30)
[2017-01-20] MEDS ORDERED: SENNA/DOCUSATE TABLET NG PRN (09:30)
[2017-01-20] MEDS ORDERED: LACTULOSE 20 GM/30 ML UDC NG PRN (09:30)
[2017-01-20] MEDS ORDERED: BISACODYL 10 MG SUPP PR PRN (09:30)
[2017-01-20] MEDS: FAMOTIDINE 20 MG/2 ML IV SCH ×2 (09:30→22:17)
[2017-01-20] MEDS ORDERED: SENNOSIDES 8.8 MG/5 ML ORAL SOL NG PRN (09:30)
[2017-01-20] MEDS: HEPARIN 25,000 UNITS/500ML PMX 500 ML IV PRN (15:01)
[2017-01-20] MEDS: RIVAROXABAN 10 MG TABLET PO SCH (16:29)
[2017-01-20] MEDS: LATANOPROST OPHTH 0.005%, 2.5ML EACHEYE SCH (22:20)
[2017-01-21] MEDS: METOCLOPRAMIDE 5 MG/ML, 2ML IVPush SCH ×4 (03:40→22:10)
[2017-01-21] MEDS: PIPERACILLIN/TAZO/PMX 2.25GM 50 ML IV SCH ×4 (03:41→22:11)
[2017-01-21 04:54] LABS: ABG COLLECTION SITE NOT DOCUMENTED
[2017-01-21 04:59] LABS: HEMOGLOBIN 8.9 g/dL (13.7-18.0)
[2017-01-21 05:07] LABS: ASPARTATE AMINO TRANSFERASE 26 U/L (15-37); BLOOD UREA NITROGEN 70 mg/dL (7-18); TOTAL IRON BINDING CAPACITY 164 mcg/dL (250-450)
[2017-01-21 06:17] LABS: ANTI-Xa-UNFRACTIONATED HEP 0.19 IU/mL (0.30-0.70)
[2017-01-21] MEDS: HEPARIN 25,000 UNITS/500ML PMX 500 ML IV PRN ×2 (06:31→22:12)
[2017-01-21] MEDS: NYSTATIN 500,000 UNITS/5 ML UDC PO SCH ×4 (06:32→22:10)
[2017-01-21] MEDS: SODIUM CHLORIDE FLUSH 10ML SYR IVF SCH ×6 (07:31→21:00)
[2017-01-21] MEDS ORDERED: HEPARIN/XARELTO MC SCH (08:00)
[2017-01-21] MEDS: RIVAROXABAN 10 MG TABLET PO SCH (08:32)
[2017-01-21] MEDS: TAMSULOSIN 0.4 MG CAP.ER.24H PO SCH ×2 (08:53→09:11)
[2017-01-21] MEDS: SEVELAMER 2.4 GM POWD.PACK NG SCH (08:53)
[2017-01-21] MEDS: ASPIRIN 81 MG TABLET CHEW PO SCH (09:10)
[2017-01-21] MEDS: FUROSEMIDE 20 MG/2 ML IV SCH ×2 (09:11→22:16)
[2017-01-21] MEDS: PANTOPRAZOLE 40 MG IV IVPush SCH (09:11)
[2017-01-21] MEDS: DOCUSATE 50 MG/5 ML, 10ML UDC PO SCH (09:12)
[2017-01-21] MEDS: IRON SUCROSE COMPLEX 100MG/5ML IV SCH (09:12)
[2017-01-21] MEDS: TIMOLOL OPHTH 0.5%, 5ML EACHEYE SCH (09:12)
[2017-01-21] MEDS: METHYLNALTREXONE 12 MG/0.6 ML SQ SCH (11:32)
[2017-01-21] MEDS: LATANOPROST OPHTH 0.005%, 2.5ML EACHEYE SCH (22:10)
[2017-01-21] MEDS: NOREPINEPHRINE 4 MG in SODIUM CHLORIDE 0.9% 246 ML IV PRN (22:51)
[2017-01-22] MEDS: METOCLOPRAMIDE 5 MG/ML, 2ML IVPush SCH ×4 (04:20→21:40)
[2017-01-22] MEDS: PIPERACILLIN/TAZO/PMX 2.25GM 50 ML IV SCH ×4 (04:21→21:41)
[2017-01-22 04:47] LABS: ABG COLLECTION SITE LEFT RADIAL; COLLATERAL CIRCULATION TESTING NORMAL
[2017-01-22 04:51] LABS: HEMOGLOBIN 8.5 g/dL (13.7-18.0)
[2017-01-22 04:54] LABS: ASPARTATE AMINO TRANSFERASE 28 U/L (15-37); BLOOD UREA NITROGEN 64 mg/dL (7-18)
[2017-01-22] MEDS: NYSTATIN 500,000 UNITS/5 ML UDC PO SCH ×4 (06:09→21:40)
[2017-01-22] MEDS: SODIUM CHLORIDE FLUSH 10ML SYR IVF SCH ×6 (09:00→21:00)
[2017-01-22] MEDS: IRON SUCROSE COMPLEX 100MG/5ML IV SCH (09:29)
[2017-01-22] MEDS: SEVELAMER 2.4 GM POWD.PACK NG SCH (09:29)
[2017-01-22] MEDS: PANTOPRAZOLE 40 MG IV IVPush SCH (09:29)
[2017-01-22] MEDS: ARTIFICIAL TEARS OPHTH SOLN 15ML EACHEYE PRN (09:29)
[2017-01-22] MEDS: ASPIRIN 81 MG TABLET CHEW PO SCH (09:30)
[2017-01-22] MEDS: DOCUSATE 50 MG/5 ML, 10ML UDC PO SCH (09:30)
[2017-01-22] MEDS: TIMOLOL OPHTH 0.5%, 5ML EACHEYE SCH (09:32)
[2017-01-22] MEDS: FENTANYL PF 100 MCG/2ML IVPush PRN ×2 (14:04→16:06)
[2017-01-22] MEDS: LATANOPROST OPHTH 0.005%, 2.5ML EACHEYE SCH (21:41)
[2017-01-22] MEDS: ACETAMINOPHEN 325 MG TABLET PO PRN (22:52)
[2017-01-23] MEDS: METOCLOPRAMIDE 5 MG/ML, 2ML IVPush SCH ×4 (03:07→21:32)
[2017-01-23] MEDS: PIPERACILLIN/TAZO/PMX 2.25GM 50 ML IV SCH ×3 (03:58→18:33)
[2017-01-23 04:22] LABS: ABG COLLECTION SITE LEFT RADIAL; COLLATERAL CIRCULATION TESTING NORMAL
[2017-01-23 04:45] LABS: ASPARTATE AMINO TRANSFERASE 24 U/L (15-37); BLOOD UREA NITROGEN 89 mg/dL (7-18)
[2017-01-23 06:57] LABS: HEMOGLOBIN 8.9 g/dL (13.7-18.0)
[2017-01-23 07:15] LABS: ANISOCYTOSIS 1+; POLYCHROMASIA 1+
[2017-01-23 07:16] LABS: POIKILOCYTOSIS 1+
[2017-01-23 07:17] LABS: OVALOCYTES 1+
[2017-01-23] MEDS: NYSTATIN 500,000 UNITS/5 ML UDC PO SCH ×4 (08:43→21:32)
[2017-01-23] MEDS: SODIUM CHLORIDE FLUSH 10ML SYR IVF SCH ×6 (08:43→21:20)
[2017-01-23] MEDS: TIMOLOL OPHTH 0.5%, 5ML EACHEYE SCH (08:43)
[2017-01-23] MEDS: IRON SUCROSE COMPLEX 100MG/5ML IV SCH (08:43)
[2017-01-23] MEDS: PANTOPRAZOLE 40 MG IV IVPush SCH (08:43)
[2017-01-23] MEDS: ASPIRIN 81 MG TABLET CHEW PO SCH (08:44)
[2017-01-23] MEDS: DOCUSATE 50 MG/5 ML, 10ML UDC PO SCH (08:44)
[2017-01-23] MEDS: SEVELAMER 2.4 GM POWD.PACK NG SCH (08:44)
[2017-01-23] MEDS: TAMSULOSIN 0.4 MG CAP.ER.24H PO SCH (08:45)
[2017-01-23] MEDS: FUROSEMIDE 40 MG/4 ML IV SCH (08:49)
[2017-01-23] MEDS: ALBUMIN HUMAN 25% 100 ML IV PRN (09:37)
[2017-01-23] MEDS ORDERED: MIDAZOLAM 1 MG/ML, 2ML ONE (14:04)
[2017-01-23] MEDS ORDERED: VECURONIUM 10 MG ONE (14:32)
[2017-01-23] MEDS ORDERED: FENTANYL PF 100 MCG/2ML IVPush ONE (15:00)
[2017-01-23] MEDS ORDERED: MIDAZOLAM 1 MG/ML, 2ML IVPush ONE (15:00)
[2017-01-23] MEDS ORDERED: VECURONIUM 10 MG IVPush ONE (15:00)
[2017-01-23] MEDS: NOREPINEPHRINE 4 MG in SODIUM CHLORIDE 0.9% 246 ML IV PRN ×2 (15:36→23:55)
[2017-01-23] MEDS: FENTANYL PF 100 MCG/2ML IVPush PRN ×2 (17:36→21:41)
[2017-01-23] MEDS: LATANOPROST OPHTH 0.005%, 2.5ML EACHEYE SCH (21:33)
[2017-01-24] MEDS: PIPERACILLIN/TAZO/PMX 2.25GM 50 ML IV SCH ×4 (00:46→20:39)
[2017-01-24] MEDS: METOCLOPRAMIDE 5 MG/ML, 2ML IVPush SCH (03:14)
[2017-01-24 04:32] LABS: HEMOGLOBIN 8.7 g/dL (13.7-18.0)
[2017-01-24 04:33] LABS: ABG COLLECTION SITE LEFT RADIAL; COLLATERAL CIRCULATION TESTING NORMAL
[2017-01-24 04:48] LABS: ASPARTATE AMINO TRANSFERASE 24 U/L (15-37); BLOOD UREA NITROGEN 74 mg/dL (7-18)
[2017-01-24] MEDS: NYSTATIN 500,000 UNITS/5 ML UDC PO SCH ×4 (05:57→20:41)
[2017-01-24] MEDS ORDERED: HYDROcodone/APAP 5/325 TABLET PO PRN (08:30)
[2017-01-24] MEDS: SODIUM CHLORIDE FLUSH 10ML SYR IVF SCH ×6 (09:00→20:41)
[2017-01-24] MEDS: SEVELAMER 2.4 GM POWD.PACK NG SCH (09:45)
[2017-01-24] MEDS: TIMOLOL OPHTH 0.5%, 5ML EACHEYE SCH (09:46)
[2017-01-24] MEDS: TAMSULOSIN 0.4 MG CAP.ER.24H PO SCH (09:46)
[2017-01-24] MEDS: PANTOPRAZOLE 40 MG IV IVPush SCH (09:46)
[2017-01-24] MEDS: ASPIRIN 81 MG TABLET CHEW PO SCH (09:46)
[2017-01-24] MEDS: FUROSEMIDE 40 MG/4 ML IV SCH (09:47)
[2017-01-24] MEDS: DOCUSATE 50 MG/5 ML, 10ML UDC PO SCH (09:47)
[2017-01-24] MEDS: HEPARIN 25,000 UNITS/500ML PMX 500 ML IV PRN (09:50)
[2017-01-24] MEDS: ARANESP 60 MCG/ML **ESRD SQ SCH (15:17)
[2017-01-24] MEDS: ALBUMIN HUMAN 25% 100 ML IV PRN ×4 (16:37→19:23)
[2017-01-24] MEDS: LATANOPROST OPHTH 0.005%, 2.5ML EACHEYE SCH (20:40)
[2017-01-24] MEDS: NOREPINEPHRINE 4 MG in SODIUM CHLORIDE 0.9% 246 ML IV PRN (22:27)
[2017-01-25] MEDS: PIPERACILLIN/TAZO/PMX 2.25GM 50 ML IV SCH ×5 (00:35→23:59)
[2017-01-25 04:43] LABS: ABG COLLECTION SITE RIGHT RADIAL; COLLATERAL CIRCULATION TESTING NORMAL
[2017-01-25 04:57] LABS: HEMOGLOBIN 7.8 g/dL (13.7-18.0)
[2017-01-25] MEDS: NYSTATIN 500,000 UNITS/5 ML UDC PO SCH ×4 (05:16→20:34)
[2017-01-25 05:22] LABS: BLOOD UREA NITROGEN 62 mg/dL (7-18)
[2017-01-25 05:25] LABS: ASPARTATE AMINO TRANSFERASE 43 U/L (15-37)
[2017-01-25] MEDS: HEPARIN 25,000 UNITS/500ML PMX 500 ML IV PRN (06:30)
[2017-01-25] MEDS: SODIUM CHLORIDE FLUSH 10ML SYR IVF SCH ×6 (09:00→20:34)
[2017-01-25] MEDS: TAMSULOSIN 0.4 MG CAP.ER.24H PO SCH (09:05)
[2017-01-25] MEDS: ASPIRIN 81 MG TABLET CHEW PO SCH (09:05)
[2017-01-25] MEDS: PANTOPRAZOLE 40 MG IV IVPush SCH (09:05)
[2017-01-25] MEDS: FUROSEMIDE 40 MG/4 ML IV SCH (09:05)
[2017-01-25] MEDS: DOCUSATE 50 MG/5 ML, 10ML UDC PO SCH (09:05)
[2017-01-25] MEDS: SEVELAMER 2.4 GM POWD.PACK NG SCH (09:06)
[2017-01-25] MEDS: MIDODRINE 5 MG TABLET PO SCH ×3 (09:06→20:34)
[2017-01-25] MEDS: TIMOLOL OPHTH 0.5%, 5ML EACHEYE SCH (09:07)
[2017-01-25] MEDS: ALBUMIN HUMAN 25% 100 ML IV PRN ×2 (10:24→11:00)
[2017-01-25] MEDS ORDERED: PANT40VI IVPush (12:53)
[2017-01-25] MEDS ORDERED: LIDO10VI34 ENDO (12:53)
[2017-01-25] MEDS ORDERED: SEVE2.4P NG (12:53)
[2017-01-25] MEDS ORDERED: ACET325T14 PO (12:53)
[2017-01-25] MEDS ORDERED: ASPI-515 PO (12:53)
[2017-01-25] MEDS ORDERED: TRAM50TA2 PO (12:53)
[2017-01-25] MEDS ORDERED: BISA10SU65 PR (12:53)
[2017-01-25] MEDS ORDERED: NYST1000 PO (12:53)
[2017-01-25] MEDS ORDERED: Darbepoetin Alfa In Polysorbat SQ (12:53)
[2017-01-25] MEDS ORDERED: TIMO5DRO5 EACHEYE (12:53)
[2017-01-25] MEDS ORDERED: ONDA4VIA4 IVPush (12:53)
[2017-01-25] MEDS ORDERED: FURO10VI37 IV (12:53)
[2017-01-25] MEDS ORDERED: APIX5TAB PO (12:53)
[2017-01-25] MEDS ORDERED: MIDO5TAB PO (12:53)
[2017-01-25] MEDS ORDERED: Latanoprost EACHEYE (12:53)
[2017-01-25] MEDS ORDERED: ALPR-475 PO (12:53)
[2017-01-25] MEDS ORDERED: TAMS-11 PO (12:53)
[2017-01-25] MEDS ORDERED: HYDR-3240 PO (12:53)
[2017-01-25] MEDS ORDERED: 0.92DISP2 IV (13:42)
[2017-01-25] MEDS ORDERED: ALBU50IV IV (13:46)
[2017-01-25] MEDS ORDERED: [UNRECOGNIZED DRUG - CODE] IV (13:46)
[2017-01-25] MEDS ORDERED: PIPE2.255 IV (13:48)
[2017-01-25] MEDS ORDERED: [UNRECOGNIZED DRUG - OTHER] IV (13:49)
[2017-01-25] MEDS ORDERED: FENT50AM IV (13:51)
[2017-01-25] MEDS ORDERED: DEXT50DI3 IV (13:53)
[2017-01-25] MEDS ORDERED: MINE3.5O31 OP (14:01)
[2017-01-25] MEDS: APIXABAN 5 MG TABLET PO SCH ×2 (14:25→20:34)
[2017-01-25] MEDS: LATANOPROST OPHTH 0.005%, 2.5ML EACHEYE SCH (20:33)
[2017-01-26 04:31] LABS: ABG COLLECTION SITE RIGHT RADIAL; COLLATERAL CIRCULATION TESTING NORMAL
[2017-01-26 04:35] LABS: HEMOGLOBIN 8.1 g/dL (13.7-18.0)
[2017-01-26 04:41] LABS: BLOOD UREA NITROGEN 52 mg/dL (7-18)
[2017-01-26 04:49] LABS: ASPARTATE AMINO TRANSFERASE 50 U/L (15-37)
[2017-01-26] MEDS: NOREPINEPHRINE 4 MG in SODIUM CHLORIDE 0.9% 246 ML IV PRN (04:58)
[2017-01-26 05:00] LABS: ANISOCYTOSIS 1+
[2017-01-26 05:01] LABS: OVALOCYTES 1+; POIKILOCYTOSIS 1+; POLYCHROMASIA 1+
[2017-01-26] MEDS: NYSTATIN 500,000 UNITS/5 ML UDC PO SCH (06:08)
[2017-01-26] MEDS: PIPERACILLIN/TAZO/PMX 2.25GM 50 ML IV SCH (06:08)
[2017-01-26 06:20] LABS: ABG COLLECTION SITE LEFT RADIAL; COLLATERAL CIRCULATION TESTING NORMAL
[2017-01-26] MEDS: SODIUM CHLORIDE FLUSH 10ML SYR IVF SCH ×3 (08:23→10:00)
[2017-01-26] MEDS: TIMOLOL OPHTH 0.5%, 5ML EACHEYE SCH (09:56)
[2017-01-26] MEDS: FUROSEMIDE 40 MG/4 ML IV SCH (09:58)
[2017-01-26] MEDS: ASPIRIN 81 MG TABLET CHEW PO SCH (09:58)
[2017-01-26] MEDS: PANTOPRAZOLE 40 MG IV IVPush SCH (09:58)
[2017-01-26] MEDS: SEVELAMER 2.4 GM POWD.PACK NG SCH (09:58)
[2017-01-26] MEDS: TAMSULOSIN 0.4 MG CAP.ER.24H PO SCH (09:58)
[2017-01-26] MEDS: APIXABAN 5 MG TABLET PO SCH (09:59)
[2017-01-26] MEDS: DOCUSATE 50 MG/5 ML, 10ML UDC PO SCH (10:01)
[2017-01-26] MEDS ORDERED: MIDODRINE 5 MG TABLET PO SCH (16:00)
== END 2017-01-26 10:36 | DRG 3 ==
LOC: 5SO 04:25 → CCU 09:10 → ICU 01-16 11:24 → 5SO 01-17 17:27 → CSU 01-20 04:30 → CCU 01-20 10:38
PROVIDERS: ADMIT Thoracic Surgery (Cardiothoracic Vascular Surgery)
PROC: 02UG0JZ Supplement Mitral Valve with Synthetic Substitute, Open Approach (ICD-10-PCS; 2017-01-04)
PROC: 5A1221Z Performance of Cardiac Output, Continuous (ICD-10-PCS; 2017-01-04)
PROC: 0T9B70Z Drainage of Bladder with Drainage Device, Via Natural or Artificial Opening (ICD-10-PCS; 2017-01-04)
PROC: 02580ZZ Destruction of Conduction Mechanism, Open Approach (ICD-10-PCS; principal; 2017-01-04 07:30)
PROC: 0BJ08ZZ Inspection of Tracheobronchial Tree, Via Natural or Artificial Opening Endoscopic (ICD-10-PCS; 2017-01-05)
PROC: 02L70ZK Occlusion of Left Atrial Appendage, Open Approach (ICD-10-PCS; 2017-01-06)
PROC: B246ZZ4 Ultrasonography of Right and Left Heart, Transesophageal (ICD-10-PCS; 2017-01-06)
PROC: 05HM33Z Insertion of Infusion Device into Right Internal Jugular Vein, Percutaneous Approach (ICD-10-PCS; 2017-01-06)
PROC: B5131ZA Fluoroscopy of Right Jugular Veins using Low Osmolar Contrast, Guidance (ICD-10-PCS; 2017-01-06)
PROC: 5A1945Z Respiratory Ventilation, 24-96 Consecutive Hours (ICD-10-PCS; 2017-01-08)
PROC: 0BH17EZ Insertion of Endotracheal Airway into Trachea, Via Natural or Artificial Opening (ICD-10-PCS; 2017-01-08)
PROC: 0B113F4 Bypass Trachea to Cutaneous with Tracheostomy Device, Percutaneous Approach (ICD-10-PCS; 2017-01-09)
PROC: 02H633Z Insertion of Infusion Device into Right Atrium, Percutaneous Approach (ICD-10-PCS; 2017-01-09)
PROC: 4A10X4Z Monitoring of Central Nervous Electrical Activity, External Approach (ICD-10-PCS; 2017-01-10)
PROC: 05HM33Z Insertion of Infusion Device into Right Internal Jugular Vein, Percutaneous Approach (ICD-10-PCS; 2017-01-19)
PROC: B5131ZA Fluoroscopy of Right Jugular Veins using Low Osmolar Contrast, Guidance (ICD-10-PCS; 2017-01-19)
PROC: 30233L1 Transfusion of Nonautologous Fresh Plasma into Peripheral Vein, Percutaneous Approach (ICD-10-PCS; 2017-01-19)
PROC: 30233K1 Transfusion of Nonautologous Frozen Plasma into Peripheral Vein, Percutaneous Approach (ICD-10-PCS; 2017-01-19)
PROC: 5A1955Z Respiratory Ventilation, Greater than 96 Consecutive Hours (ICD-10-PCS; 2017-01-20)
PROC: 0BCG8ZZ Extirpation of Matter from Left Upper Lung Lobe, Via Natural or Artificial Opening Endoscopic (ICD-10-PCS; 2017-01-20)
PROC: 0BCJ8ZZ Extirpation of Matter from Left Lower Lung Lobe, Via Natural or Artificial Opening Endoscopic (ICD-10-PCS; 2017-01-20)
PROC: 0BC28ZZ Extirpation of Matter from Carina, Via Natural or Artificial Opening Endoscopic (ICD-10-PCS; 2017-01-20)
PROC: 0BC78ZZ Extirpation of Matter from Left Main Bronchus, Via Natural or Artificial Opening Endoscopic (ICD-10-PCS; 2017-01-20)
PROC: 0BC98ZZ Extirpation of Matter from Lingula Bronchus, Via Natural or Artificial Opening Endoscopic (ICD-10-PCS; 2017-01-20)
PROC: 0B9B8ZX Drainage of Left Lower Lobe Bronchus, Via Natural or Artificial Opening Endoscopic, Diagnostic (ICD-10-PCS; 2017-01-20)
PROC: 0DH63UZ Insertion of Feeding Device into Stomach, Percutaneous Approach (ICD-10-PCS; 2017-01-23)
PROC: 5A1D60Z (ICD-10-PCS; 2017-01-23)
PROC: 0BH17EZ Insertion of Endotracheal Airway into Trachea, Via Natural or Artificial Opening (ICD-10-PCS; 2017-01-23)
PROC: 0B9M8ZZ Drainage of Bilateral Lungs, Via Natural or Artificial Opening Endoscopic (ICD-10-PCS; 2017-01-23)
DX: I34.0 Nonrheumatic mitral (valve) insufficiency (principal); J96.20 Acute and chronic respiratory failure, unspecified whether with hypoxia or hypercapnia; J18.9 Pneumonia, unspecified organism; N17.0 Acute kidney failure with tubular necrosis; N18.6 End stage renal disease; G93.41 Metabolic encephalopathy; I63.9 Cerebral infarction, unspecified; J90 Pleural effusion, not elsewhere classified; J93.9 Pneumothorax, unspecified; J81.1 Chronic pulmonary edema; E46 Unspecified protein-calorie malnutrition; K56.7 Ileus, unspecified; Z99.11 Dependence on respirator [ventilator] status; D68.59 Other primary thrombophilia; E87.1 Hypo-osmolality and hyponatremia; E87.4 Mixed disorder of acid-base balance; J98.11 Atelectasis; I12.0 Hypertensive chronic kidney disease with stage 5 chronic kidney disease or end stage renal disease; G47.33 Obstructive sleep apnea (adult) (pediatric); I27.2 Other secondary pulmonary hypertension; I48.2 Chronic atrial fibrillation; Z99.2 Dependence on renal dialysis; Z51.5 Encounter for palliative care; E78.5 Hyperlipidemia, unspecified; E66.9 Obesity, unspecified; E66.01 Morbid (severe) obesity due to excess calories; G47.30 Sleep apnea, unspecified; I95.9 Hypotension, unspecified; D64.9 Anemia, unspecified; D69.6 Thrombocytopenia, unspecified; D72.829 Elevated white blood cell count, unspecified; T17.990A Other foreign object in respiratory tract, part unspecified in causing asphyxiation, initial encounter; Z86.73 Personal history of transient ischemic attack (TIA), and cerebral infarction without residual deficits; Z82.49 Family history of ischemic heart disease and other diseases of the circulatory system; Z80.7 Family history of other malignant neoplasms of lymphoid, hematopoietic and related tissues; Z68.37 Body mass index [BMI] 37.0-37.9, adult; Z79.01 Long term (current) use of anticoagulants; K76.0 Fatty (change of) liver, not elsewhere classified
CPT/HCPCS: 31622; 31624; 31629; 36415; 36556; 36558; 36600; 70551; 71010; 71020; 74000; 74230; 76700; 76937; 77001; 80048; 80053; 81001; 82040; 82140; 82330; 82533; 82570; 82607; 82728; 82746; 82800; 82803; 82810; 82947; 82962; 83036; 83540; 83550; 83605; 83735; 84100; 84132; 84156; 84295; 84300; 84443; 84478; 84550; 85014; 85018; 85025; 85049; 85347; 85520; 85610; 85730; 86704; 86706; 86850; 86900; 86923; 87040; 87070; 87077; 87081; 87086; 87102; 87116; 87186; 87205; 87206; 87340; 93005; 93312; 93321; 93325; 93880; 93931; 94002; 94003; 94150; 94640; 94660; 95819; C1894; J0690; J0696; J0697; J0882; J1644; J1756; J1815; J1940; J2175; J2250; J2260; J2405; J2543; J2704; J2720; J3010; J3370; J3475; J3480; J3490; J7120; J7613; P9045; P9047; 92523-GN; C1750; C1751; C1760; C1763; C1769; C9113; J0171; J0282; J0330; J0780; J1630; J1642; J2270; J2310; J2370; J2765; J2930; J7030; J7040; J7050; J7060; P9017; S0028